=== PATIENT | male | born 1955 | race Caucasian/White ===

== ENCOUNTER 2016-09-01 01:21 | Emergency (ER) | payer OTHER ==
[2016-09-01 01:46] LABS: % IMMATURE GRANULYOCYTES 0.3 % (0.0-1.1); ABSOLUTE IMMATURE GRANULOCYTES 0.03 10^3/uL (0.00-0.10); ADD DIFF? NO; ADD MORPH? NO; ADD SCAN? NO; ATYPICAL LYMPHOCYTE FLAG 0 (0-99); FRAGMENT RBC FLAG 0 (0-99); HEMOGLOBIN 16.9 g/dL (13.7-17.5); LEFT SHIFT FLG 0 (0-99); LIPEMIA HEMOLYSIS FLAG 90 (0-99); MEAN CELL HEMOGLOBIN 32.8 pg (27.9-34.1); MEAN CELL HEMOGLOBIN CONCENTR. 34.5 g/dL (32.4-36.7); MEAN CELL VOLUME 95.1 fL (81.5-99.8); MEAN PLATELET VOLUME 9.2 fL (8.7-11.7); PLATELET CLUMPS FLAG 0 (0-99); PLATELET COUNT 219 10^3/uL (150-400); RED BLOOD CELL COUNT 5.15 10^6/uL (4.40-6.38); RED CELL DISTRIBUTION WIDTH 12.1 % (11.5-15.2)
[2016-09-01] MEDS ORDERED: KETOROLAC 15 MG/1 ML SDV IVP ONE (01:48)
[2016-09-01] MEDS ORDERED: NS 1,000 ML IV ONE ×2 (01:48)
[2016-09-01] MEDS ORDERED: LIDOCAINE 1% 120 MG in NS 100 ML IV ONE (01:48)
[2016-09-01] MEDS ORDERED: KETOROLAC 15 MG/1 ML SDV ONE (01:49)
[2016-09-01 02:02] LABS: ANION GAP 12 mEq/L (8-16); CALCIUM 9.5 mg/dL (8.5-10.4); CARBON DIOXIDE 22 mEq/l (22-31); CHLORIDE 106 mEq/L (97-110); GLOMERULAR FILTRATION RATE > 60; GLUCOSE 120 mg/dL (70-100); POTASSIUM 3.8 mEq/L (3.5-5.2); SODIUM 140 mEq/L (134-144)
[2016-09-01] MEDS ORDERED: HYDROmorphONE/DILAUDID 1 MG/ML SYR IVP PRN (02:12)
[2016-09-01] MEDS ORDERED: HYDROmorphONE/DILAUDID 1 MG/ML SYR ONE (02:12)
[2016-09-01 02:18] VITALS: RESP 16
[2016-09-01 03:56] LABS: COLOR YELLOW; LEUKOCYTE ESTERASE,URINE NEGATIVE (NEGATIVE); NITRITE,URINE NEGATIVE (NEGATIVE)
--- NOTE | 2016-09-01 04:02 | EDPHY ---
H & P Stated Complaint: left flank pain Time Seen by Provider: 09/01/16 01:41 HPI/ROS: HPI The patient presents with left flank pain which began suddenly at about 12:15 a.m. this morning and awoke him from sleep. The pain has been constant and severe, dull in nature. It is associated with dysuria. He has not had any nausea, vomiting. He has not had any hematuria or fever. He has no prior history of similar.. REVIEW OF SYSTEMS Constitutional: No fever, no chills. Eyes: No discharge. ENT: No sore throat. Cardiovascular: No chest pain, no palpitations. Respiratory: No cough, no shortness of breath. Gastrointestinal: No abdominal pain, no vomiting. Genitourinary: No hematuria. Musculoskeletal: No back pain. Skin: No rashes. Neurological: No headache. PMHx: Prior laryngeal cancer Soc Hx: Lives at home with his PHYSICAL General Appearance: Alert, uncomfortable appearing Eyes: Pupils equal and round no pallor or injection ENT, Mouth: Mucous membranes moist Respiratory: There are no retractions, lungs are clear to auscultation Cardiovascular: Regular rate and rhythm Gastrointestinal: Abdomen is soft and non-tender, no masses, bowel sounds normal Back: Left-sided CVA tenderness Neurological: A&O, moves all extremities Skin: Warm and dry, no rashes Musculoskeletal: Neck is supple non tender Extremities: symmetrical, full range of motion Psychiatric: Patient is oriented X 3, there is no agitation Source: Patient Exam Limitations: No limitations - Personal History Current Tetanus Diphtheria and Acellular Pertussis (TDAP): Yes - Medical/Surgical History Hx Asthma: No Hx Chronic Respiratory Disease: No Hx Diabetes: No Hx Cardiac Disease: No Hx Renal Disease: No Hx Cirrhosis: No Hx Alcoholism: No Hx HIV/AIDS: No Hx Splenectomy or Spleen Trauma: No Other PMH: 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, hypothyroid, cholecystectomy - Social History Smoking Status: Never smoked Constitutional: Initial Vital Signs Temperature (C) 37 C 09/01/16 01:26 Heart Rate 68 09/01/16 01:26 Respiratory Rate 24 H 09/01/16 01:26 Blood Pressure 98/57 L 09/01/16 01:26 O2 Sat (%) 99 09/01/16 01:26 O2 Delivery Mode Room Air Allergies/Adverse Reactions: pentoxifylline [From [facility]] Allergy (Intermediate, Verified 04/06/15 12:12) hives/swelling Home Medications: Medication Instructions Recorded Levothyroxine [Synthroid] 100 mcg PO DAILY06 04/06/15 Hydrocodone/APAP 5/325 [[place] 1 - 2 tab PO Q6H PRN #15 tab 09/01/16 5/325 (*)] Ondansetron Odt [Zofran Odt 4 mg 4 mg PO Q4 PRN #10 tab 09/01/16 (*)] Tamsulosin HCl [Flomax 0.4 MG (*)] 0.4 mg PO DAILY #10 cap 09/01/16 Medical Decision Making - Diagnostics Imaging Results: CT abdomen pelvis without contrast demonstrates 3 stones in the left distal ureter with hydronephrosis, largest stone measures 5 mm in diameter, discussed with Dr. Mccray Imaging: Discussed imaging studies w/ gathering machine feeder Radiologist Differential Diagnosis: This is a 61-year-old male who presents with several hours of left-sided flank pain which is severe. On exam, he is uncomfortable with left-sided flank tenderness. Differential diagnosis includes ureterolithiasis, pyelonephritis, less likely AAA. In the emergency room, the patient was initially given Toradol and lidocaine with some improvement in his symptoms. On reassessment, he was continually uncomfortable, thus he was given a dose of Dilaudid with improvement in his pain. IV fluids were given as well. Labs were checked and were unremarkable. CT scan did reveal left-sided stones in the distal ureter which are likely the cause of his symptoms given the hydronephrosis noted. The patient felt well enough to go home and was discharged with medications for kidney stone as well as Urology follow-up. He was advised that there is a 50% chance that his kidney stones will not pass on their own. - Data Points Laboratory Results: Laboratory Results 09/01/16 01:40 09/01/16 01:40 09/01/16 09/01/16 09/01/16 03:43 01:40 01:40 WBC 9.50 10^3/uL 10^3/uL (3.80-9.50) RBC 5.15 10^6/uL 10^6/uL (4.40-6.38) Hgb 16.9 g/dL g/dL (13.7-17.5) Hct 49.0 % % (40.0-51.0) MCV 95.1 fL fL (81.5-99.8) MCH 32.8 pg pg (27.9-34.1) MCHC 34.5 g/dL g/dL (32.4-36.7) RDW 12.1 % % (11.5-15.2) Plt Count 219 10^3/uL 10^3/uL (150-400) MPV 9.2 fL fL (8.7-11.7) Neut % (Auto) 53.0 % % (39.3-74.2) Lymph % (Auto) 35.9 % % (15.0-45.0) [place] % (Auto) 9.2 % % (4.5-13.0) Eos % (Auto) 1.3 % % (0.6-7.6) Baso % (Auto) 0.3 % % (0.3-1.7) Nucleat RBC Rel Count 0.0 % % (0.0-0.2) Absolute Neuts (auto) 5.04 10^3/uL 10^3/uL (1.70-6.50) Absolute Lymphs (auto) 3.41 10^3/uL H 10^3/uL (1.00-3.00) Absolute Monos (auto) 0.87 10^3/uL H 10^3/uL (0.30-0.80) Absolute Eos (auto) 0.12 10^3/uL 10^3/uL (0.03-0.40) Absolute Basos (auto) 0.03 10^3/uL 10^3/uL (0.02-0.10) Absolute Nucleated RBC 0.00 10^3/uL 10^3/uL (0-0.01) Immature Gran % 0.3 % % (0.0-1.1) Immature Gran # 0.03 10^3/uL 10^3/uL (0.00-0.10) Sodium 140 mEq/L mEq/L (134-144) Potassium 3.8 mEq/L mEq/L (3.5-5.2) Chloride 106 mEq/L mEq/L (97-110) Carbon Dioxide 22 mEq/l mEq/l (22-31) Anion Gap 12 mEq/L mEq/L (8-16) BUN 16 mg/dL mg/dL (7-23) Creatinine 1.0 mg/dL mg/dL (0.7-1.3) Estimated GFR > 60 Glucose 120 mg/dL H mg/dL (70-100) Calcium 9.5 mg/dL mg/dL (8.5-10.4) Urine Color YELLOW Urine Appearance HAZY Urine pH 6.0 (5.0-7.5) Ur Specific [place] 1.025 (1.002-1.030) Urine Protein NEGATIVE (NEGATIVE) Urine Ketones 2+ H (NEGATIVE) Urine Blood NEGATIVE (NEGATIVE) Urine Nitrate NEGATIVE (NEGATIVE) Urine Bilirubin NEGATIVE (NEGATIVE) Urine Urobilinogen NEGATIVE EU EU (0.2-1.0) Ur Leukocyte Esterase NEGATIVE (NEGATIVE) Urine Glucose NEGATIVE (NEGATIVE) Medications Given: Discontinued Medications Hydromorphone HCl (Dilaudid) 0.5 mg IVP Q4 PRN PRN Reason: Pain, Severe Unable to Take PO Stop: 09/11/16 02:11 Last Admin: 09/01/16 02:17 Dose: 0.5 mg Sodium Chloride (Ns) 1,000 mls @ 0 mls/hr IV ONCE ONE; Wide Open PRN Reason: Protocol Stop: 09/01/16 01:49 Last Admin: 09/01/16 02:32 Dose: 1,000 mls Sodium Chloride (Ns) 1,000 mls @ 0 mls/hr IV ONCE ONE; Wide Open PRN Reason: Protocol Stop: 09/01/16 01:49 Last Admin: 09/01/16 01:45 Dose: 1,000 mls Lidocaine HCl 120 mg/ Sodium (Chloride) 112 mls @ 600 mls/hr IV EDNOW ONE Stop: 09/01/16 01:59 Last Admin: 09/01/16 02:04 Dose: 112 mls Ketorolac Tromethamine (Toradol) 15 mg IVP EDNOW ONE Stop: 09/01/16 01:49 Last Admin: 09/01/16 02:04 Dose: 15 mg Departure - Departure Disposition: Home, Routine, Self-Care Clinical Impression: Calculus of left kidney, Ureterolithiasis Condition: Good Instructions: Renal Colic (ED) Additional Instructions: 1. Take Ibuprofen or Motrin 400 mg by mouth three times a day. 2. [place] as needed for severe pain 3. Flomax as directed 4. Zofran as needed for nausea 5. Strain urine as directed 6. Return to the Emergency Department for intractable pain, fever or vomiting. 7. Followup with the urologist you have been referred to for unimproved symptoms. Referrals: DEBORAH BURNS [Primary Care Provider] - As per Instructions Stanley Choudhury MD [Medical Doctor] - As per Instructions Prescriptions: Hydrocodone/APAP 5/325 [[place] 5/325 (*)] 1 - 2 tab PO Q6H PRN #15 tab PRN Reason: Pain, Breakthrough Ondansetron Odt [Zofran Odt 4 mg (*)] 4 mg PO Q4 PRN #10 tab PRN Reason: Nausea/Vomiting, Can'T Take Po Tamsulosin HCl [Flomax 0.4 MG (*)] 0.4 mg PO DAILY #10 cap
[2016-09-01 04:17] VITALS: BP 100/62; PULSE 67; TEMP 98.2; O2SAT 95
== END 2016-09-01 04:22 | disposition home or self-care (01) ==
DX: N20.0 Calculus of kidney (principal); N20.1 Calculus of ureter; Z85.818 Personal history of malignant neoplasm of other sites of lip, oral cavity, and pharynx
CPT/HCPCS: J1170; J1885